=== PATIENT | female | born 1975 | race Caucasian/White ===

== ENCOUNTER 2017-03-05 16:46 | Emergency (ER) | payer MEDICAID ==
[2017-03-05] MEDS ORDERED: Loratadine 10 MG Tab PO ONE (18:04)
--- NOTE | 2017-03-05 18:04 | EDM.PDOC ---
ED HPI GENERAL MEDICAL PROBLEM - General Chief Complaint: Allergic Reaction Stated Complaint: POSSIBLE ALLERGIC REACTION Time Seen by Provider: 03/05/17 17:18 Source of Information: Reports: Patient, Family (), RN Notes Reviewed History Limitations: Reports: No Limitations - History of Present Illness INITIAL COMMENTS - FREE TEXT/NARRATIVE: The patient states that she was in a pumpkin patch around 14:00 CDT yesterday afternoon, when she was stung by a bee to the right neck, under the angle of the mandible. The patient's stated that he was able to get the stinger out, then applied moderate to the area. The patient states that around 03:00 this morning, she couldn't breathe, her chest felt tight, she developed swelling to the right anterolateral neck, and she had nasal congestion, chills, and general malaise. She denies developing generalized hives, experiencing wheezing, or angioedema, including lip swelling or swelling within her mouth. She acknowledges that she has recently been experiencing cold symptoms, including a cough whenever she breathes deeply. The patient reports that she may have also been stung by a bee to her left thigh. She believes that the stinger was found and removed, however, the patient did not have any pain or local reaction. She acknowledges that the stinger found may have been from a plant. The patient denies prior reactions to bee stings, such as local erythema or swelling. Right Neck Pain Score (Numeric/FACES): 7 - Related Data Allergies Allergy/AdvReac Type Severity Reaction Status Date / Time codeine Allergy Lethargy Verified 02/29/16 09:20 Home Meds: Home Meds Escitalopram [Lexapro] 10 mg PO DAILY 02/29/16 [History] Cyclobenzaprine [Flexeril] 5 mg PO BEDTIME 03/05/17 [History] Fexofenadine/Pseudoephedrine [Yany-D 12 Hour Tablet] 1 tab PO BID 03/05/17 [ History] Motrin Cream 1 mg TOP ASDIRECTED 03/05/17 [History] Omeprazole Magnesium [Prilosec Otc] 20 mg PO DAILY 03/05/17 [History] Rosuvastatin [Crestor] 5 mg PO DAILY 03/05/17 [History] Past Medical History HEENT History: Reports: Allergic Rhinitis, Impaired Vision Other HEENT History: wears glasses Cardiovascular History: Reports: High Cholesterol Gastrointestinal History: Reports: GERD 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: 4 Musculoskeletal History: Reports: Osteoarthritis Psychiatric History: Reports: Anxiety, Depression - Past Surgical History HEENT Surgical History: Reports: Oral Surgery (Hay teeth extraction) Female Surgical History: Reports: D&C (x 2) Social & Family History - Tobacco Use Smoking Status *Q: Current Every Day Smoker Years of Tobacco use: 24 Packs/Tins Daily: 1 - Caffeine Use Caffeine Use: Reports: Coffee, Soda - Alcohol Use Alcohol Use History: Yes Alcohol Use Frequency: Rarely - Recreational Drug Use Recreational Drug Use: No - Living Situation & Occupation Living situation: Reports: , , with Spouse, with Family (3 kids) 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) ED ROS GENERAL - Review of Systems Review Of Systems: See Below Constitutional: Reports: Chills HEENT: Reports: No Symptoms Respiratory: Reports: No Symptoms Cardiovascular: Reports: No Symptoms Endocrine: Reports: No Symptoms GI/Abdominal: Reports: Nausea : Reports: No Symptoms Musculoskeletal: Reports: No Symptoms Skin: Reports: No Symptoms Neurological: Reports: No Symptoms Psychiatric: Reports: No Symptoms Hematologic/Lymphatic: Reports: No Symptoms Immunologic: Reports: No Symptoms ED EXAM, GENERAL - Physical Exam Exam: See Below Exam Limited By: No Limitations General Appearance: Alert, WD/WN, No Apparent Distress Eye Exam: Bilateral Eye: EOMI, Normal Inspection, PERRL Ears: Normal External Exam, Normal Canal, Hearing Grossly Normal, Normal TMs Ear Exam: Bilateral Ear: Auricle Normal, Canal Normal, TM normal Nose: Normal Inspection, No Blood, Other (Bilateral nasal mucosal congestion) Throat/Mouth: Normal Inspection, Normal Lips (no swelling), Normal Teeth, Normal Gums, Normal Oropharynx (no uvular swelling), Normal Voice, No Airway Compromise Head: Atraumatic, Normocephalic Neck: Supple, Full Range of Motion, Other (There is a patch of focal swelling and erythema to the anterolateral right neck, measuring approximately 3 cm x 2 cm. This is tender to palpation.). No: Lymphadenopathy (L), Lymphadenopathy (R) Respiratory/Chest: No Respiratory Distress, Lungs Clear, Normal Breath Sounds, No Accessory Muscle Use. No: Crackles, Rhonchi, Wheezing Cardiovascular: Normal Peripheral Pulses, Regular Rate, Rhythm, No Gallop, No JVD, No Murmur, No Rub Peripheral Pulses: 4+: Radial (L), Radial (R) GI/Abdominal: Normal Bowel Sounds, Soft, Non-Tender, No Organomegaly, No Distention, No Abnormal Bruit, No Mass (Female) Exam: Deferred Rectal (Female) Exam: Deferred Back Exam: Normal Inspection, Full Range of Motion, NT Extremities: Normal Inspection, Normal Range of Motion, No Pedal Edema, Normal Capillary Refill Neurological: Alert, Oriented, Normal Cognition, No Motor/Sensory Deficits Psychiatric: Normal Affect Skin Exam: Warm, Dry, Intact, Normal Color, No Rash (no evidence of urticaria) Course - Vital Signs Last Recorded V/S: Last Vital Signs Temp 36.1 C 03/05/17 16:55 Pulse 70 03/05/17 18:15 Resp 18 03/05/17 18:15 BP 117/75 03/05/17 18:15 Pulse Ox 100 03/05/17 18:15 - Orders/Labs/Meds Meds: Medications Discontinued Medications Generic Name Dose Route Start Last Admin Trade Name Anel PRN Reason Stop Dose Admin Loratadine 10 mg 03/05/17 18:04 03/05/17 18:15 Claritin PO 03/05/17 18:05 10 mg ONETIME ONE Administration - Re-Assessments/Exams Free Text/Narrative Re-Assessment/Exam: 03/05/17 18:03 The patient appears to be experiencing a modest local inflammatory reaction to a bee sting, as well as a viral URI. For the local reaction, I am recommending an antihistamine and ice packs. For her viral URI, the patient is already on Flonase. She can also take oxymetazoline for up to 5 days, along with nasal saline, Chloraseptic spray for a sore throat, Tylenol/ibuprofen, and warm salt water gargles. I'm recommending that she avoid jokp-kyq-wuqofew cough or cold remedies. Departure - Departure Time of Disposition: 18:06 Disposition: Home, Self-Care 01 Condition: Good Clinical Impression: Local reaction to bee sting, Viral URI with cough - Discharge Information Instructions: Upper Respiratory Infection, Adult, [id number], Bee, Wasp, or Hornet Sting Referrals: Jessica iHnkle, CLASSIFICATION ANALYST [Primary Care Provider] - Forms: ED Department Discharge Additional Instructions: You were seen in the emergency room for a painful swelling to the right side of her neck after being stung by a bee. On examination, you appear to be experiencing a local inflammatory reaction to the bee sting. This is not a generalized allergic reaction. Treatment includes an gfdd-rrd-nzfkoto antihistamine, such as Benadryl or Claritin, along with ice packs several times a day. This reaction may take 10- 12 days to completely resolve. As discussed, topical antihistamines are of no benefit. You also appear to have a viral upper respiratory infection. Unfortunately, there are no medicines to treat a viral URI - it will have to run its course. For nasal congestion, you can purchase qmff-[id number] oxymetazoline in a " pump mist" bottle. [place] one spray up each nostril, wait 5 minutes, then spray a second spray up each nostril. Repeat this every 12 hours, for up to 5 days total. We also recommend you purchase nasal saline spray in a pressurized can, such as "Simply Saline". [place] this up each nostril many times a day. For sore throat, you can use Chloraseptic spray or warm salt water gargles, Tylenol, or ibuprofen. We do not recommend you purchase rdqh-kli-ifcmmmu cough or cold remedies, as they do not work, but do have side effects. Follow-up with your PCP, Rosa Hinkle, as needed. If any other problems, please do not hesitate to return to the ER.
[2017-03-05 18:25] VITALS: BP 117/75
== END 2017-03-05 18:20 | disposition home or self-care (01) ==
LOC: JD.ED 16:46
DX: T63.441A Toxic effect of venom of bees, accidental (unintentional), initial encounter (principal); R22.1 Localized swelling, mass and lump, neck; J06.9 Acute upper respiratory infection, unspecified; E78.00 Pure hypercholesterolemia, unspecified; K21.9 Gastro-esophageal reflux disease without esophagitis; F17.210 Nicotine dependence, cigarettes, uncomplicated; Z88.5 Allergy status to narcotic agent; Z79.899 Other long term (current) drug therapy; F41.9 Anxiety disorder, unspecified; F32.9 Major depressive disorder, single episode, unspecified
CPT/HCPCS: 99282; A9270

== ENCOUNTER 2021-01-27 00:25 | Emergency (ER) | payer OTHER, MEDICAID ==
[2021-01-27 00:42] VITALS: BP 132/76; PULSE 58
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
--- NOTE | 2021-01-27 07:22 | CT ---
CT maxillofacial Technique: Multiple axial sections through the maxillofacial structures were obtained with reconstructed coronal and sagittal images also being obtained. Comparison: No prior facial bone study is available. Findings: Mild mucosal thickening is seen within the right maxillary sinus with retention cyst within the right maxillary sinus measuring 1.1 cm. Other visualized paranasal sinuses are clear. No air-fluid levels are seen. Mastoid sinuses are clear. Right and left globes are symmetric. No retrobulbar abnormality is appreciated. No facial bone fracture is seen. Impression: 1. Mild chronic sinus findings within the right maxillary sinus. 2. Nothing acute is appreciated on CT study of the facial bones. Diagnostic code #2 I agree with preliminary report from [facility], finalized on 01/27/21, 2:51 AM CDT, code 2
--- NOTE | 2021-01-27 07:23 | CR ---
Right ankle: 4 views of the right ankle were obtained. Comparison: No prior ankle study is available. Ankle mortise is symmetric. No fracture, dislocation or other bony abnormality is appreciated. Impression: 1. Nothing acute is seen on right ankle exam. Diagnostic code #1
--- NOTE | 2021-01-27 07:23 | CT ---
CT cervical spine Technique: Multiple axial sections were obtained from above C1 inferiorly to the mid T3 level. Reconstructed coronal and sagittal images were obtained. Comparison: No prior cervical spine imaging is available. Findings: Vertebral body heights are maintained. Mild disc space narrowing is noted at C6-7. Slight posterior osteophytes are noted at C6-7. Minimal anterior spondylolisthesis seen at C5-6 most likely physiologic. No bony central or bony neural foraminal stenosis is seen. No fracture or subluxation is otherwise seen. Slight kyphosis is noted on the lateral view which is most likely positional. Impression: 1. Minimal degenerative change. 2. No acute fracture is seen on CT study of the cervical spine. Diagnostic code #2 I agree with preliminary report from [facility], finalized on 01/27/21, 2:54 AM CDT, code 1
--- NOTE | 2021-01-27 07:52 | CT ---
Head CT Technique: Multiple axial sections through the brain were obtained. Intravenous contrast was not utilized. Reconstructed coronal and sagittal images were obtained. Comparison: Prior head CT study of 02/29/16. Findings: Ventricles along with basal cisterns and sulci over the convexities are within normal limits for the patient's age. No abnormal parenchymal densities are seen. No evidence of intracranial hemorrhage is seen. No midline shift or mass-effect is seen. Bone window settings were reviewed. No acute calvarial abnormality is seen. Visualized mastoid sinuses and paranasal sinuses show nothing acute. Impression: 1. No acute intracranial abnormality is seen. 2. No change from previous head CT study is available. Diagnostic code #1 I agree with preliminary report from [facility], finalized on 01/27/21, 2:48 AM CDT, code 1
== END 2021-01-27 02:44 | disposition home or self-care (01) ==
LOC: JD.ED 00:25
DX: S06.0X0A Concussion without loss of consciousness, initial encounter (principal); S93.401A Sprain of unspecified ligament of right ankle, initial encounter; E78.00 Pure hypercholesterolemia, unspecified; I10 Essential (primary) hypertension; K21.9 Gastro-esophageal reflux disease without esophagitis; J45.909 Unspecified asthma, uncomplicated; Z88.5 Allergy status to narcotic agent; Z72.0 Tobacco use; V47.6XXA Car passenger injured in collision with fixed or stationary object in traffic accident, initial encounter; Y92.410 Unspecified street and highway as the place of occurrence of the external cause
CPT/HCPCS: 70450; 70450-26; 70486; 70486-26; 72125; 72125-26; 73610-26-RT; 73610-RT; 99283; 99284-25

== ENCOUNTER 2024-06-04 20:04 | Emergency (ER) | payer MEDICAID ==
[2024-06-04 21:00] LABS: BASOPHILS PERCENT AUTO 0.4 % (0.0-1.0); EOSINOPHILS ABSOLUTE AUTO 0.2 K/mm3 (0.0-0.4); EOSINOPHILS PERCENT AUTO 2.4 % (0.0-6.0); HEMOGLOBIN 13.4 gm/dl (12.0-16.0); IMMATURE GRAN ABSOLUTE AUTO 0.02 K/mm3 (0.00-0.05); IMMATURE GRAN PERCENT AUTO 0.3 % (0.0-0.4); LYMPHOCYTES ABSOLUTE AUTO 2.2 K/mm3 (1.0-4.8); LYMPHOCYTES PERCENT AUTO 32.8 % (24.0-44.0); MEAN CORPUSCULAR HEMOGLOBIN 30.9 pg (28.0-32.0); MEAN CORPUSCULAR HGB CONC 33.5 g/dl (32.0-36.0); MEAN CORPUSCULAR VOLUME 92.2 fl (83.0-99.0); MEAN PLATELET VOLUME 10.3 fl (9.4-12.3); MONOCYTES ABSOLUTE AUTO 0.3 K/mm3 (0.0-0.8); MONOCYTES PERCENT AUTO 4.9 % (0.0-8.0); NEUTROPHILS PERCENT AUTO 59.2 % (41.0-71.0); PLATELET COUNT,PLT 216 K/mm3 (150-400); RED BLOOD CELL COUNT 4.34 M/mm3 (4.10-5.30); WHITE BLOOD CELL COUNT,WBC 6.79 K/mm3 (3.9-11.3)
[2024-06-04] MEDS ORDERED: Sodium Chloride 0.9% 1,000 ML IV SCH (21:15)
[2024-06-04] MEDS: Iopamidol 612 MG/ML 100 ML Bottle IVPUSH ONE (21:23)
[2024-06-04 21:29] LABS: A/G RATIO 0.7 (1-2); ALBUMIN 3.2 g/dl (3.4-5.0); ANION GAP 14.9 (5-15); BILIRUBIN TOTAL 0.3 mg/dL (0.2-1.0); CALCIUM 9.6 mg/dL (8.5-10.1); EST CRCL DRUG DOSING (CG) 57.53 mL/min; POTASSIUM,K 3.9 mEq/L (3.5-5.1); PROTEIN TOTAL,TP 7.6 g/dl (6.4-8.2)
[2024-06-04 22:47] VITALS: BP 133/50; PULSE 81
== END 2024-06-04 22:42 | disposition home or self-care (01) ==
LOC: JD.ED 20:04
DX: S39.011A Strain of muscle, fascia and tendon of abdomen, initial encounter (principal); D36.7 Benign neoplasm of other specified sites; E78.00 Pure hypercholesterolemia, unspecified; F17.210 Nicotine dependence, cigarettes, uncomplicated; Z79.899 Other long term (current) drug therapy; Z91.030 Bee allergy status; Z88.6 Allergy status to analgesic agent; Z88.8 Allergy status to other drugs, medicaments and biological substances; W11.XXXA Fall on and from ladder, initial encounter
CPT/HCPCS: 36415; 74177; 80053; 83690; 84484; 85025; 93005; 99284; Q9967; 93010

== ENCOUNTER 2024-07-20 00:41 | Emergency (ER) | payer MEDICAID ==
[2024-07-20] MEDS ORDERED: Sodium Chloride 0.9% 10 ML Syringe FLUSH PRN (01:12)
[2024-07-20 01:23] LABS: BASOPHILS ABSOLUTE AUTO 0.1 K/mm3 (0.0-0.2); BASOPHILS PERCENT AUTO 0.7 % (0.0-1.0); EOSINOPHILS ABSOLUTE AUTO 0.2 K/mm3 (0.0-0.4); HEMATOCRIT 40.8 % (37.0-47.0); HEMOGLOBIN 13.8 gm/dl (12.0-16.0); IMMATURE GRAN ABSOLUTE AUTO 0.02 K/mm3 (0.00-0.05); IMMATURE GRAN PERCENT AUTO 0.3 % (0.0-0.4); LYMPHOCYTES ABSOLUTE AUTO 3.6 K/mm3 (1.0-4.8); LYMPHOCYTES PERCENT AUTO 48.2 % (24.0-44.0); MEAN CORPUSCULAR HEMOGLOBIN 29.6 pg (28.0-32.0); MEAN CORPUSCULAR HGB CONC 33.8 g/dl (32.0-36.0); MEAN CORPUSCULAR VOLUME 87.4 fl (83.0-99.0); MEAN PLATELET VOLUME 10.3 fl (9.4-12.3); MONOCYTES ABSOLUTE AUTO 0.5 K/mm3 (0.0-0.8); MONOCYTES PERCENT AUTO 6.9 % (0.0-8.0); NEUTROPHILS PERCENT AUTO 40.9 % (41.0-71.0); PLATELET COUNT,PLT 245 K/mm3 (150-400); RED BLOOD CELL COUNT 4.67 M/mm3 (4.10-5.30); WHITE BLOOD CELL COUNT,WBC 7.41 K/mm3 (3.9-11.3)
[2024-07-20] MEDS: Alum Hydrox/Mag Hydrox/Simeth 30 ML, Lidocaine 2% 15 ML PO ONE (01:24)
[2024-07-20] MEDS: Famotidine 20 MG Tab PO ONE (01:25)
[2024-07-20] MEDS: Sodium Chloride 0.9% 1,000 ML IV ONE (01:25)
[2024-07-20] MEDS: HYDROmorphone 1 MG/ML Syringe IVPUSH ONE ×2 (01:29→02:50)
[2024-07-20 01:40] LABS: A/G RATIO 0.8 (1-2); ALBUMIN 3.8 g/dl (3.4-5.0); ANION GAP 15.8 (5-15); BILIRUBIN TOTAL 0.4 mg/dL (0.2-1.0); BUN/CREATININE RATIO 15.5 (14-18); CALCIUM 9.9 mg/dL (8.5-10.1); CREATININE 1.1 mg/dL (0.55-1.02); EST CRCL DRUG DOSING (CG) 52.3 mL/min; POTASSIUM,K 3.8 mEq/L (3.5-5.1); PROTEIN TOTAL,TP 8.9 g/dl (6.4-8.2)
[2024-07-20 01:55] LABS: APPEARANCE,URINE SLT CLOUDY (Clear); BILIRUBIN,URINE NEGATIVE (Negative); COLOR,URINE YELLOW (Yellow); GLUCOSE,URINE NEGATIVE (Negative); KETONES,URINE 1+ (Negative); LEUKOCYTE ESTERASE,URINE NEGATIVE (Negative); NITRITE,URINE NEGATIVE (Negative); OCCULT BLOOD,URINE NEGATIVE (Negative); PROTEIN,URINE 1+ (Negative); UROBILINOGEN,URINE 0.2 (0.2-1.0)
[2024-07-20 02:21] LABS: BACTERIA,URINE MODERATE /hpf (FEW); MUCUS,URINE MANY /hpf (FEW); RBC,URINE 0-5 /hpf (0-5); SQUAMOUS EPITHELIAL CELLS,UR 20-30 /hpf (0-5); WBC,URINE 0-5 /hpf (0-5)
[2024-07-20 03:24] VITALS: BP 126/75; PULSE 92
== END 2024-07-20 03:23 | disposition home or self-care (01) ==
LOC: JD.ED 00:41
DX: R10.13 Epigastric pain (principal); E78.00 Pure hypercholesterolemia, unspecified; F17.210 Nicotine dependence, cigarettes, uncomplicated; Z91.030 Bee allergy status; Z88.8 Allergy status to other drugs, medicaments and biological substances; Z88.5 Allergy status to narcotic agent; Z79.899 Other long term (current) drug therapy; Z86.16 Personal history of COVID-19
CPT/HCPCS: 36415; 76705; 80053; 81001; 83605; 83690; 84703; 85025; 96361; 96374; 96376; 99284; A9270; J1171; J7030